=== PATIENT | male | born 1980 | race Caucasian/White ===

== ENCOUNTER 2021-08-02 07:29 | Day surgery (SDC) | payer OTHER ==
[2021-08-02] VITALS (8 sets, daily range): BP systolic 120–149; BP diastolic 71–88
[~2021-08-02] VITALS: Ht 190.5 cm; Wt 102.1 kg
--- NOTE | 2021-08-02 07:44 | NUR ---
PT ARRIVED AMBULATORY TO ROOM ACCOMPANIED BY [facility] STAFF ORIENTED PT TO ROOM
--- NOTE | 2021-08-02 09:15 | NUR ---
DR REYNOLDS AT BEDSIDE DISCUSSING POC
[2021-08-02 10:51] LABS: HEMATOCRIT 48.6 % (39.0-50.0); HEMOGLOBIN 16.3 g/dl (14.0-18.0); MEAN CELL VOLUME 82.7 fL CALC (80.0-100.0); MEAN CORPUSCULAR HGB 27.7 pG CALC (26.0-32.0); MEAN CORPUSCULAR HGB CONC 33.5 g/dL CAL (32.0-36.0); NEUT# 3.07 thou/uL (1.82-7.42); RED BLOOD COUNT 5.88 mill/uL (4.70-6.10); RED CELL DISTRI WIDTH 12.9 % (11.5-15.5)
[2021-08-02 11:10] LABS: ALBUMIN 4.3 g/dL (3.2-5.0); ALKALINE PHOSPHATASE 95 u/l (38-126); ANION GAP 14 (6-22 (CALC)); BILIRUBIN, TOTAL 1.2 mg/dL (0.0-1.4); BUN 20 mg/dL (9-20); BUN/CREATININE RATIO 18 (12-20 (CALC)); CARBON DIOXIDE 29 mmol/l (22-30); CHLORIDE 101 mmol/l (95-108); CREATININE 1.1 mg/dL (0.7-1.3); GFR > 60 ML/MIN (>=60 (CALC)); GFR FOR AFR.AMER. > 60 ML/MIN (>=60 (CALC)); POTASSIUM 4.4 mmol/l (3.5-5.1); SGOT/AST 56 u/l (17-59); SODIUM 140 mmol/l (137-146); TOTAL PROTEIN 7.7 g/dL (6.3-8.2)
--- NOTE | 2021-08-02 12:57 | NUR ---
PT TAKEN VIA BED ACCOMPANIED BY THIS BAND SCROLL SAW OPERATOR AND WILLIS RN IN STABLE CONDITION FOR [facility]R PROCEDURE
[2021-08-02] MEDS ORDERED: CLONIDINE0.1 MG PO (15:08)
[2021-08-02] MEDS ORDERED: NALTREXONE50 MG PO (15:09)
[2021-08-02] MEDS ORDERED: KLONOPIN0.5 M1 PO (15:10)
--- NOTE | 2021-08-02 19:00 | NUR ---
PT RETURN TO ROOM VIA BED ACCOMPANIED BY STAFF; PT DROWSY/AROUSABLE; O2 2L VIA NC; IVF INFUSING WITHOUT DIFFICULTY; BED ALARM IN PLACE FOR SAFETY; CALL ADORNO WITHIN REACH; WILL CONTINUE TO MONITOR.
--- NOTE | 2021-08-02 22:09 | NUR ---
PT INCONTINENT OF LARGE AMOUNT OF URINE; PARTIAL BATH AND COMPLETE LINEN CHANGE; PT TOLERATED WELL; WILL CONITNUE TO MONITOR.
--- NOTE | 2021-08-02 23:00 | NUR ---
REPORT RECEIVED FROM Jannette SCOTT RN AT BEDSIDE. CARE OF PT ASSUMED AT THIS TIME.
[2021-08-03 03:20] VITALS: BP 169/78
--- NOTE | 2021-08-03 04:07 | NUR ---
Katie PRESLEY ASSOCIATE STORE LEADER IN ROOM COLLECTING AM LABS.
--- NOTE | 2021-08-03 04:21 | NUR ---
PT WITH LARGE AMOUNT BILIOUS EMESIS ON BATHROOM FLOOR. ASSISTED TO CLEAN UP AND BACK TO BED. DENIES FURTHER NAUSEA AT THIS TIME.
[2021-08-03 05:29] LABS: HEMATOCRIT 49.2 % (39.0-50.0); HEMOGLOBIN 16.9 g/dl (14.0-18.0); IMMATURE GRANULOCYTES 0.1 % (0.0-5.0); MEAN CELL VOLUME 81.2 fL CALC (80.0-100.0); MEAN CORPUSCULAR HGB 27.9 pG CALC (26.0-32.0); MEAN CORPUSCULAR HGB CONC 34.3 g/dL CAL (32.0-36.0); NEUT# 11.68 thou/uL (1.82-7.42); RED BLOOD COUNT 6.06 mill/uL (4.70-6.10); RED CELL DISTRI WIDTH 12.6 % (11.5-15.5)
[2021-08-03 05:50] LABS: ANION GAP 15 (6-22 (CALC)); BUN 20 mg/dL (9-20); BUN/CREATININE RATIO 17 (12-20 (CALC)); CARBON DIOXIDE 27 mmol/l (22-30); CHLORIDE 102 mmol/l (95-108); CREATININE 1.2 mg/dL (0.7-1.3); GFR > 60 ML/MIN (>=60 (CALC)); GFR FOR AFR.AMER. > 60 ML/MIN (>=60 (CALC)); POTASSIUM 4.4 mmol/l (3.5-5.1); SODIUM 138 mmol/l (137-146)
--- NOTE | 2021-08-03 07:14 | NUR ---
REPORT WAS RECEIVED FROM LAYNE WALSH. PATIENT IS RESTING IN BED. PATIENT STATED HE IS COLD. MADE ROOM WARM AND PROVIDED WITH A WARM BLANKET. PATIENT DENIES ANY OTHER NEEDS AT THIS TIME. CALL LIGHT IN REACH.
[2021-08-03 08:00] VITALS: BP 133/68
--- NOTE | 2021-08-03 08:00 | NUR ---
STAND BY ASSIST PATIENT TO THE BATHROOM. PATIENT VOIDED AND HAD A BM. PATIENT BACK IN BED. ASSESSMENT DONE. PATIENT IS ALERT AND ORIENT X2. PATIETN STATED HE IS SLEEPY AND TIRED. PATIENT DENIES PAIN. PATIENT EAT 25% OF BREAKFAST. PATIENT DENIES ANY OTHER NEEDS AT THIS TIME. SAFETY PRECAUTIONS REINFORCED AND CALL LIGHT IN REACH.
--- NOTE | 2021-08-03 09:25 | NUR ---
PATIENT SET HIM SELF FOR A SHOWER. THEN BACK IN BED. PATIENT STATED HE WANTS A BLANKET. PROVIDED PATIENT WITH A BLANKE. PATIENT DENIES ANY OTHER NEEDS. CALL LIGHT IN REACH.
[2021-08-03 11:45] VITALS: BP 123/68
--- NOTE | 2021-08-03 11:45 | NUR ---
PATIENT IS RESTING IN BED WITH NO DISTRES NOTED. PATIENT FACE SEEM FLUSH CHECK TEMP 98.8. PATIENT DENIES NEEDS. CALL LIGHT IN REACH.
--- NOTE | 2021-08-03 12:14 | NUR ---
ENCOURAGE PATIENT TO EAT HIS LUNCH BUT PATIENT JUST WANTS TO SLEEP. CALL LIGHT IN REACH.
--- NOTE | 2021-08-03 14:44 | NUR ---
PATIENT AMBULATED TO THE BATHROOM TO VOID. THEN BACK IN BED. PATIENT DID NOT WANT HIS LUNCH. PROVIDED PATIENT WITH A BANANA PATIENT TOOK SMALL BITES. PATIENT REQUESTING TO GO HOME. NOTIFY PATIENT WE ARE WAITING FOR THE [facility] STAFF. PATIENT VERBALIZED UNDERSTANDING. CALL LIGHT IN REACH.
[2021-08-03 15:18] VITALS: BP 120/61
--- NOTE | 2021-08-03 15:29 | NUR ---
PATIENT IS SLEEPING IN BED WITH NO DISTRESS NOTED. CALL LIGHT IN REACH.
--- NOTE | 2021-08-03 15:32 | NUR ---
SERVICE DOG TRAINER IN ROOM TO CHECK PATIENT BUT PATIENT IS NOT IN ROOM. FOOD SELECTOR WAS CALLED TO NOTIFY PATIENT IS MISSING AND SABINA SULLIVANMANAGER CLIENT SUPPORT. I WENT OUTSIDE TO SEARCH FOR PATIENT. UNABLE TO FIND HIM AT THIS TIME.
--- NOTE | 2021-08-03 16:06 | NUR ---
1535 ED STAFF DESK STATED PATIENT MADE A PHONE CALL. 1606 LAYNE BARBER FOUND PATIENT IN THE FRONT OF THE HOSPITAL PARKING LOT SITTING IN THE GRASS WAITING FOR HIS RIDE. STENOCAPTIONER WENT TO GET A WHEECHAIR FOR PATIENT. ASKED PATIENT WHY HE LEFT. HE STATED HE IS TIRED OF WAITING AND OF THE BED. PATIENT REFUSED TO GO BACK TO HIS ROOM. LAYNE BARBER NOTIFIED DR. REYNOLDS ABOUT PATIENT. PATIENT STAYING IN THE ER WAITING AREA WITH SABINA KILN STOKER. DR. REYNOLDS IN THE ER SPEAKING TO PATIENT.
--- NOTE | 2021-08-03 16:16 | NUR ---
Discharge instructions given. Patient verbalizes understanding of same. PATIENT IS IN THE ER WAITING AREA WAITING FOR HIS RIDE AND FOR [facility] STAFF. SABINA SULLIVANMOLECULAR BIOLOGIST STAYING WITH HIM IN THE ER WAITING AREA.
--- NOTE | 2021-08-03 16:46 | NUR ---
[facility] STAFF WHEELED PATIENT BACK TO HIS ROOM AND PATIENT IS WAITING FOR DR. REYNOLDS.
--- NOTE | 2021-08-03 16:55 | NUR ---
DR. REYNOLDS IN ROOM TO ASSESS PATIENT. ORDER RECEIVED. BED ALARM IN PLACE AND CALL LIGHT IN REACH.
--- NOTE | 2021-08-03 17:00 | NUR ---
YPROVIDED PATIENT WITH WATER AND JUICE. PATIENT ONLY TOOK A FEW SIPS OF WATER. PATIENT REFUSING TO DRINK MORE AT THIS TIME. CALL LIGHT IN REACH AND BED ALARM IN PLACE.
[2021-08-03 17:20] VITALS: BP 130/68
[2021-08-03 17:37] VITALS: BP 130/68
--- NOTE | 2021-08-03 17:51 | NUR ---
ENCOURAGE PATIENT TO EAT DINNER. PATIENT STATED NO. PATIENT STATED WANTS TO SLEEP. CALL LIGHT IN REACH.
--- NOTE | 2021-08-03 18:15 | NUR ---
Discharged in stable condition via Wheelchair to Home with [facility] staff. All belongings sent with pt.
== END 2021-08-03 17:13 | disposition home or self-care (01) | DRG 897 ==
LOC: ANR 07:29 → MS2 07:34 → ANR 09:27
PROVIDERS: ATTEND Anesthesiology
DX: F11.20 Opioid dependence, uncomplicated (principal)
CPT/HCPCS: J2354